=== PATIENT | male | born 1990 | race Caucasian/White ===

== ENCOUNTER 2020-12-29 13:24 | Emergency (ER) | payer OTHER ==
[~2020-12-29] VITALS: Ht 177.8 cm; Wt 59.0 kg
[2020-12-29] MEDS ORDERED: PROZAC10 M1 PO (13:43)
[2020-12-29] MEDS ORDERED: CEPHALEXIN500 MG PO (15:21)
[2020-12-29 15:40] VITALS: BP 134/79
== END 2020-12-29 15:41 | disposition home or self-care (01) ==
LOC: M.ERS 13:24
DX: S68.123A Partial traumatic metacarpophalangeal amputation of left middle finger, initial encounter (principal); Z79.899 Other long term (current) drug therapy; W26.8XXA Contact with other sharp object(s), not elsewhere classified, initial encounter; Y93.89 Activity, other specified; Y92.69 Other specified industrial and construction area as the place of occurrence of the external cause; Y99.0 Civilian activity done for income or pay